=== PATIENT | female | born 1945 | race Caucasian/White ===

== ENCOUNTER 2018-05-25 14:30 | Emergency (ER) | payer OTHER ==
[~2018-05-25] VITALS: Ht 162.6 cm; Wt 62.3 kg
[~2018-05-25 14:30] MED LIST: BACTRIM,SEPT1 TABLET PO
[2018-05-25 15:06] LABS: HEMATOCRIT 38.4 % (36.0-46.0); HEMOGLOBIN 13.8 G/DL (11.9-15.5); MCH 29.1 PG (29.0-34.0); MCHC 35.9 G/DL (30.0-36.0); PLATELET COUNT 319 K/uL (156-360); RBC DIS.WIDTH-CV 12.7 % (11.8-14.6); RBC DIS.WIDTH-SD 37.4 % (39-53); RED BLOOD COUNT 4.74 M/uL (3.80-5.20); WHITE BLOOD COUNT 7.5 K/uL (4.1-10.2)
[2018-05-25 15:14] LABS: ALBUMIN 4.3 g/dL (3.2-4.8); CHLORIDE 101 mEq/L (99-109); POTASSIUM 3.9 mEq/L (3.7-5.4); SODIUM 136 mEq/L (136-147)
[2018-05-25 15:16] LABS: GLUCOSE 358 mg/dL (70-99)
[2018-05-25 15:18] LABS: TOTAL BILIRUBIN 0.4 mg/dL (0.0-1.0)
[2018-05-25 15:20] LABS: ALKALINE PHOSPHATASE 92 IU/L (3-129); CREATININE 0.9 mg/dL (0.6-1.3); GFR ESTIMATE (CALCULATED) > 59 mL/min/
[2018-05-25 15:21] LABS: UREA NITROGEN (BUN) 13 mg/dL (9-23)
[2018-05-25 15:22] LABS: AST (GOT) 10 IU/L (2-34)
[2018-05-25 15:23] LABS: ALT (GPT) 13 IU/L (3-49)
[2018-05-25 16:42] LABS: LIPASE 40 U/L (1.0-51.0)
[2018-05-25 16:53] LABS: APPEARANCE CLEAR ((CLEAR)); BILIRUBIN NEGATIVE; BLOOD NEGATIVE; COLOR YELLOW ((YELLOW)); GLUCOSE (STRIP) >=500; KETONES NEGATIVE; LEUKOCYTES NEGATIVE; NITRITE NEGATIVE; PROTEIN (STRIP) NEGATIVE; SPECIFIC GRAVITY 1.022 (1.000-1.030); UCUL ADDED? NO; UROBILINOGEN 0.2 MG/DL (0.2-1.0)
[2018-05-25] MEDS ORDERED: VALTREX1000 MG PO (18:45)
[2018-05-25] MEDS ORDERED: XERESE 5%-1% CRE5 GM TP (18:45)
[2018-05-25] MEDS ORDERED: TRAMADOL HCL50 MG PO (18:45)
[2018-05-25 19:09] VITALS: BP 158/89
[2018-05-25] MEDS ORDERED: ZOVIRAX OINTMEN15 GM TP (19:12)
== END 2018-05-25 19:16 | disposition home or self-care (01) ==
LOC: EME 14:30
DX: B02.9 Zoster without complications (principal); E11.65 Type 2 diabetes mellitus with hyperglycemia; I10 Essential (primary) hypertension; Z91.040 Latex allergy status
CPT/HCPCS: 74176; 80053; 81003; 83690; 85027; 99281; 99284